=== PATIENT | male | born 1975 ===

== ENCOUNTER 2017-03-22 09:53 | Emergency (ER) | payer BC ==
[2017-03-22 10:51] VITALS: BP 108/78
[2017-03-22] MEDS ORDERED: Ketorolac INJ* 60 MG/2 ML VIAL IM ONE (11:48)
--- NOTE | 2017-03-22 12:15 | RAD ---
Indication: Back pain. 3 views of lumbar spine demonstrates no fracture. Disc spaces all well-preserved. Spinal canal appears to be intact. IMPRESSION: No fracture of the lumbar spine is noted.
--- NOTE | 2017-03-22 12:40 | UC ---
Back Pain HPI - HPI Summary HPI Summary: FALL DOWN STAIRS YESTERDAY, LEFT LOW BACK AND BUTTOCK PAIN. NO LOSS OF CONTROL OF BLADDER OR BOWELS. - History of Current Complaint Chief Complaint: UCBackPain Stated Complaint: LOWER BACK PAIN Time Seen by Provider: 03/22/17 11:36 Hx Obtained From: Patient Onset/Duration: Sudden Onset, Lasting Hours Timing: Intermittent, Lasting Hours Severity Initially: Moderate Severity Currently: Moderate Back Pain: Radiates To - LEFT LEG Character: Dull, Aching, Spasmodic Aggravating: Movement, Lifting Associated Signs And Symptoms: Negative: Flank Pain, Bladder Incontinence, Bowel Incontinence, Pain with Weight Bearing Related History: Previous Back Injury - Risk Factors AAA Risk Factors: Negative TAD Risk Factors: Negative Cauda Equina Risk Factors: Negative Epidural Abscess Risk Factors: Negative - Allergies/Home Medications Allergies/Adverse Reactions: Allergies Allergy/AdvReac Type Severity Reaction Status Date / Time No Known Allergies Allergy Verified 03/22/17 10:43 PMH/Surg Hx/FS Hx/Imm Hx Previously Healthy: Yes - Surgical History Surgical History: None - Family History Known Family History: Positive: Other - no FMH of low back strain - Social History Occupation: Employed Full-time Lives: With Family Alcohol Use: None Substance Use Type: None Smoking Status (MU): Light Every Day Tobacco Smoker Type: Cigarettes Amount Used/How Often: 1ppd Household Exposure Type: Cigarettes Cessation Counseling: Patient Advised to Stop Review of Systems Constitutional: Negative Skin: Negative Eyes: Negative ENT: Negative Respiratory: Negative Cardiovascular: Negative Gastrointestinal: Negative Genitourinary: Negative Motor: Negative Neurovascular: Negative Musculoskeletal: Arthralgia, Myalgia Neurological: Negative Psychological: Negative Is Patient Immunocompromised?: No All Other Systems Reviewed And Are Negative: Yes Physical Exam Triage Information Reviewed: Yes Appearance: Well-Appearing, Well-Nourished, Pain Distress Vital Signs: Initial Vital Signs Temp 98.6 F 03/22/17 10:43 Pulse 96 03/22/17 10:43 Resp 20 03/22/17 10:43 BP 108/78 03/22/17 10:43 Pulse Ox 100 03/22/17 10:43 Vital Signs Reviewed: Yes Eye Exam: Normal ENT Exam: Normal ENT: Positive: Normal ENT inspection, TMs normal Dental Exam: Normal Neck exam: Normal Neck: Positive: Supple, Nontender, No Lymphadenopathy Respiratory Exam: Normal Respiratory: Positive: Chest non-tender, Lungs clear, Normal breath sounds, No respiratory distress, No accessory muscle use Cardiovascular Exam: Normal Cardiovascular: Positive: RRR, No Murmur, Pulses Normal Abdominal Exam: Normal Abdomen Description: Positive: Nontender, No Organomegaly. Negative: CVA Tenderness (R), CVA Tenderness (L) Musculoskeletal: Positive: Strength Intact, ROM Intact, No Edema, Other: - POSITIVE STRAIGHT LEG RAISE LEFT LEG 20DEGREES. Neurological Exam: Normal Psychological Exam: Normal Skin Exam: Normal Back Pain Course/Dx - Differential Dx/Diagnosis Differential Diagnosis/HQI/PQRI: Arthritis, Strain, Sprain Provider Diagnoses: ACUTE ON CHRONIC LOW BACK SPRAIN; SCIATICA Discharge - Discharge Plan Condition: Stable Disposition: HOME Prescriptions: Cyclobenzaprine TAB* [Flexeril 10 MG TAB*] 10 mg PO TID PRN #15 tab PRN Reason: Spasms HYDROcodone/ACETAMIN 5-325 MG* [[place] 5-325 TAB*] 1 tab PO Q8H PRN #12 tab MDD three tabs PRN Reason: Pain Patient Education Materials: Acute Low Back Pain (ED), Chronic Back Pain (ED) Forms: *Work Release Referrals: [facility] [place] PHYSICIAN REFERRAL [Outside] Non Staff,Doctor [Primary Care Provider] - Additional Instructions: PHYSICAL THERAPY REFERRAL: You have been prescribed physical therapy. Treatments may include stretching, exercise, application of heat or cold, and other modalities. After an injury, PT can reduce swelling and pain. In recovery, PT is used to restore mobility and strength. Your specific treatment goals are: __x___ Reduction of Swelling (EGS, US, ice as needed) ___x__ Pain Reduction (EGS, US, ice as needed) ___x__ TENS Pack Fitting and Instruction Wound Hydrotherapy ___x__ Preservation of Mobility ___xx__ Rastafari of Mobility ___x__ Strength Rastafari __x___ Work or Sports Hardening This instruction sheet also serves as your PHYSICAL THERAPY REFERRAL! Please take it with you to the therapist, so he/she will be aware of your diagnosis and treatment plan. You may see the physical therapist of your choice for these treatments, but may wish to check with your insurance to be sure the provider you select is covered. It's important to see the doctor to whom you have been referred for follow up.
== END 2017-03-22 12:37 | disposition home or self-care (01) ==
LOC: UCCORT 09:53
DX: S33.5XXA Sprain of ligaments of lumbar spine, initial encounter (principal); M54.42 Lumbago with sciatica, left side; W10.9XXA Fall (on) (from) unspecified stairs and steps, initial encounter; Y92.9 Unspecified place or not applicable
CPT/HCPCS: 72100; 96372; 99211; G0463; J1885

== ENCOUNTER 2017-04-07 11:12 | Emergency (ER) | payer BC, OTHER ==
[2017-04-07 11:25] VITALS: BP 123/81
--- NOTE | 2017-04-07 12:13 | ED ---
Back Pain - HPI Summary HPI Summary: 41M presents with continuation of back that started 03/30. He states at the initially injury he was walking down the stairs at work and fell down stairs and landed on left side. He denies any new injury. Has history of back pain in the same injury. He admits to tingling down his left leg. He states he saw his chiropractor who normally sees for this pain and it did not help. Went to see his primary who will not take him because it is workers comp. He deneis any loss of bowel or bladder or saddle anaesthesia. He denies any fevers. He states the muscle relaxer helped. He did not follow up with PT. - History of Current Complaint Chief Complaint: UCBackPain Stated Complaint: BACK,LEFT LEG COMPLAINT (WC) Time Seen by Provider: 04/07/17 11:45 - Allergies/Home Medications Allergies/Adverse Reactions: Allergies Allergy/AdvReac Type Severity Reaction Status Date / Time No Known Allergies Allergy Verified 04/07/17 11:18 Home Medications: Home Medications Naproxen TAB* [Naprosyn 250 mg TAB*] 250 mg PO Q8H PRN 04/07/17 [History Confirmed 04/07/17] PMH/Surg Hx/FS Hx/Imm Hx Endocrine/Hematology History: Denies: Hx Anticoagulant Therapy Respiratory History: Denies: Hx Asthma Infectious Disease History: No Infectious Disease History: Denies: Traveled Outside the [place] in Last 30 Days - Family History Known Family History: Positive: Other - no FMH of low back strain - Social History Alcohol Use: None Substance Use Type: Reports: None Smoking Status (MU): Heavy Every Day Tobacco Smoker Type: Cigarettes Amount Used/How Often: 1ppd Review of Systems Negative: Fever Negative: Chest Pain Negative: Shortness Of Breath Positive: Other - back, tingling down left knee All Other Systems Reviewed And Are Negative: Yes Physical Exam Triage Information Reviewed: Yes Vital Signs On Initial Exam: Initial Vitals Temp Pulse Resp BP Pulse Ox 98.7 F 98 16 123/81 100 04/07/17 11:18 04/07/17 11:18 04/07/17 11:18 04/07/17 11:18 04/07/17 11:18 Vital Signs Reviewed: Yes Appearance: Positive: Pain Distress Skin: Positive: Warm, Dry Head/Face: Positive: Normal Head/Face Inspection Eyes: Positive: Normal, Conjunctiva Clear Respiratory/Lung Sounds: Positive: Clear to Auscultation, Breath Sounds Present Cardiovascular: Positive: Normal, RRR Musculoskeletal: Positive: Strength/ROM Intact - back with pain, Other - tenderness left side back, good pulses, pos SLR left Neurological: Positive: Normal Psychiatric: Positive: Normal Diagnostics - Vital Signs Vital Signs Temp Pulse Resp BP Pulse Ox 04/07/17 11:18 98.7 F 98 16 123/81 100 - Laboratory Lab Statement: Any lab studies that have been ordered have been reviewed, and results considered in the medical decision making process. Back Pain Course/Dx - Course Course Of Treatment: 41M presents with continuation of back that started 03/30. He states at the initially injury he was walking down the stairs at work and fell down stairs and landed on left side. He denies any new injury. Has history of back pain in the same injury. He admits to tingling down his left leg. He states he saw his chiropractor who normally sees for this pain and it did not help. Went to see his primary who will not take him because it is workers comp. He deneis any loss of bowel or bladder or saddle anaesthesia. He denies any fevers. He states the muscle relaxer helped. He did not follow up with PT. had normal xray last time. on exam tenderness left side of back. pos SLR. gave referral for PT. will have continue steriod, flexeril, and will try gabapentin for pain. gave referral for neurosurgery as someone needs to follow up with him and his primary cant. patient understands and agrees with plan. - Diagnoses Differential Diagnosis/HQI/PQRI: Positive: Strain, Sprain, Other - sciatica Provider Diagnoses: Back pain, Sciatica Discharge - Discharge Plan Condition: Good Disposition: HOME Prescriptions: Cyclobenzaprine TAB* [Flexeril 10 MG TAB*] 10 mg PO TID PRN #30 tab PRN Reason: Pain Gabapentin CAP(*) [Neurontin 300 CAP(*)] 300 mg PO TID #30 cap Methylprednisolone [Medrol Dosepak 4 MG*] 4 mg PO .SEE JOSE INSTRUCTION #1 packet Patient Education Materials: Back Pain (ED) Forms: *Work Release Referrals: [facility] [place] [facility]IAN REFERRAL [Outside] [facility] Physical therapy,PT [Medical Doctor] - Noel Spear MD [Medical Doctor] - Non Staff,Doctor [Medical Doctor] - Additional Instructions: Follow directions on package for Medrol pack Take muscle relaxers three times a day Can apply OTC lidocaine patches to area for up to 12 hours in one 24 hour period Take gabapentin three times a day Use ibuprofen or Tylenol for pain every 6 hours ice/heat area, move as much as possible Follow up with neurosurgey Follow up with PT Return to ED if develop any new or worsening symptoms
== END 2017-04-07 12:39 | disposition home or self-care (01) ==
LOC: UCCORT 11:12
DX: M54.30 Sciatica, unspecified side (principal); F17.210 Nicotine dependence, cigarettes, uncomplicated
CPT/HCPCS: 99212; G0463

== ENCOUNTER 2017-05-30 08:06 | Observation (INO) | payer OTHER ==
[~2017-05-30 08:06] MED LIST: Bacitracin IV* 50,000 UNITS INJ ONE; Buffered Lidocaine 0.9% SYRIN* 5 ML/SYR SYRINGE INTRADERM ONE; Lidocaine 1% MPF wEPI 200,000* 30 ML SDV ONE; Thrombin 5,000 UNITS* 1 APPLIC KIT - topical use - TOPICAL ONE
[2017-05-30] MEDS ORDERED: Buffered Lidocaine 0.9% SYRIN* 5 ML/SYR SYRINGE ONE (08:08)
[2017-05-30] MEDS ORDERED: fentaNYL* 50 MCG/ML 2 ML VIAL (100 MCG VIAL) ONE ×3 (09:23→11:59)
[2017-05-30] MEDS ORDERED: Midazolam* 1 MG/ML 2 ML VIAL (2 MG) ONE ×2 (09:23→09:58)
[2017-05-30] MEDS ORDERED: diPHENhydraMINE IV* 50 MG/ML 1 ml VIAL (BENADRYL) ONE (10:14)
[2017-05-30] MEDS ORDERED: Lidocaine 2% PF * 5 ML VIAL ONE (10:14)
[2017-05-30] MEDS ORDERED: Cisatracurium* 2 MG/ML MDV 5 ML ONE (10:20)
[2017-05-30] MEDS ORDERED: Ondansetron INJ* 2 MG/ML VIAL IV PRN ×2 (10:26→11:20)
[2017-05-30] MEDS ORDERED: diPHENhydraMINE IV* 50 MG/ML 1 ml VIAL (BENADRYL) IV PRN (10:26)
[2017-05-30] MEDS ORDERED: DiMENhydriNATE IV* 50 MG/ML VIAL IV PUSH PRN (10:26)
[2017-05-30] MEDS ORDERED: Acetaminophen TAB* 325 MG PO PRN ×2 (10:26→11:20)
[2017-05-30] MEDS ORDERED: Levalbuterol 0.63MG/3ML NEB* UNIT OF USE INH PRN (10:26)
[2017-05-30] MEDS ORDERED: PROCHLORPERAZINE INJ 5 MG/ML 2 ML VIAL IV PRN (10:26)
[2017-05-30] MEDS ORDERED: Dexamethasone IV* 4 MG/ML 1 ML (4 MG) ONE (10:27)
[2017-05-30] MEDS ORDERED: Mivacurium Chloride* 20 MG/10 ML VIAL IV ONE (10:27)
[2017-05-30] MEDS ORDERED: Propofol* 10 MG/ML 20 ML BTL IV PUSH ONE (10:27)
[2017-05-30] MEDS ORDERED: Ondansetron INJ* 2 MG/ML VIAL ONE (10:27)
[2017-05-30] MEDS ORDERED: Famotidine IV* 10 MG/ML 2 ML (20 mg) ONE (10:27)
[2017-05-30] MEDS ORDERED: Labetalol IV* 5 MG/ML 20 ML VIAL ONE (10:38)
[2017-05-30] MEDS ORDERED: Nicotine Inhaler* 10 MG AMP INH PRN (11:24)
[2017-05-30] MEDS ORDERED: Mouth Piece, Nicotine* 1 EACH CARTRIDGE INH PRN (11:24)
[2017-05-30] MEDS: fentaNYL* 50 MCG/ML 2 ML VIAL (100 MCG VIAL) IV PRN ×2 (12:03→12:19)
[2017-05-30] MEDS ORDERED: HYDROcodone/ACETAMIN 5-325 MG* 1 TAB ONE (12:21)
[2017-05-30] MEDS: HYDROcodone/ACETAMIN 5-325 MG* 1 TAB PO PRN ×3 (12:23→21:54)
[2017-05-30] MEDS: Nicotine PATCH 21 MG/24 HR* PATCH TRANSDERM SCH (14:22)
[2017-05-30] MEDS ORDERED: Nicotine Patch Removal NOTE PATCH OFF SCH (21:00)
[2017-05-31] MEDS: HYDROcodone/ACETAMIN 5-325 MG* 1 TAB PO PRN ×2 (01:56→05:51)
--- NOTE | 2017-05-31 07:47 | PN ---
Progress Note - Progress Note Date of Service: 05/31/17 SOAP: Subjective: [S/p lumbar discectomy L5-S1 on the left, POD #1. RLE pain improved. Incisional pain well controlled with oral pain medications. Ambulating well. Eating, drinking and voiding without difficulty. Denies headache, chest pain and nausea. ] Objective: [Vital Signs: Temp Pulse Resp BP Pulse Ox 98.0 F 69 14 109/62 94 05/31/17 03:42 05/31/17 03:42 05/31/17 05:51 05/31/17 03:42 05/31/17 04:43 General: Alert and oriented. No distress. Sitting up on bedside. Neuro: Motor and sensory intact. Incision: Dressing intact and clean. No swelling. Extremities: Full ROM. ] Assessment: [Satisfactory post-op course. ] Plan: [1. Discharge home today. 2. Discharge instructions discussed with the patient. ]
[2017-05-31] MEDS: Nicotine PATCH 21 MG/24 HR* PATCH TRANSDERM SCH (07:59)
[2017-05-31 08:25] VITALS: BP 130/73
[2017-05-31] MEDS ORDERED: Influenza VAC *QUAD* 2017-18* 0.5 ML SYRINGE IM ONE (09:00)
--- NOTE | 2017-05-31 22:01 | DS ---
DISCHARGE SUMMARY: DATE OF ADMISSION: 05/30/17 DATE OF DISCHARGE: 05/31/17 PROVIDER: Dr. Spear. * (DICTATED BY ANGELA TERRAZAS) DISCHARGE DIAGNOSIS: Herniated nucleus pulposus, L5-S1, on the left. SPECIAL PROCEDURE: Lumbar diskectomy at L5-S1 on the left. HOSPITAL COURSE: This 41-year-old male was seen in office approximately 1 month ago with severe left-sided lumbar radiculopathy for the previous 4 weeks. He has complained of chronic low back pain for several years, which had recently worsened to include the left lower extremity. MRI of lumbar spine revealed herniated disk at L5-S1 on the left, which was consistent with the patient's physical exam findings and symptoms. He participated in physical therapy and was treated with medications without significant improvement and therefore surgical intervention was discussed with the patient. He decided to proceed with this option and on the day of admission, he was taken to surgery where under general anesthesia, a lumbar diskectomy at L5-S1 on the left operation was carried out. Postoperatively, he is doing well and the left lower extremity preoperative pain had improved. He is ambulating independently. He is eating, drinking, and voiding without difficulty. Pain is well controlled with oral pain medications on the first postoperative day. He is discharged home to the care of his family. DISCHARGE INSTRUCTIONS: Activity level and wound care were discussed with the patient and provided. FOLLOWUP: He will be seen in the office next Monday for followup and staple removal. DISCHARGE MEDICATIONS: 1. [place] 5/325 mg 1 to 2 tabs by mouth every 4 to 6 hours as needed for pain. ANGELA TERRAZAS [id number]/[facility] #: [id number] [facility]CTORS' HOSPITALJohan
--- NOTE | 2017-06-05 10:31 | OP ---
OPERATIVE REPORT: DATE OF OPERATION: 05/30/17. DATE OF : 79. PRIMARY SURGEON: Noel Covarrubias MD. IDENTIFIER HORSE: ANGELA Navarrete. ANESTHESIA: General. PRE-OP DIAGNOSIS: Herniated nucleus pulposus of L5-S1 on the left. POST-OP DIAGNOSIS: Herniated nucleus pulposus of L5-S1 on the left. OPERATIVE PROCEDURE: Lumbar diskectomy, L5-S1 on the left with microdissection. DESCRIPTION OF PROCEDURE: After satisfactory general anesthesia was obtained, the patient was placed on the operating room in a prone position with the chest supported on the Franko frame on the back s lightly flexed. The lumbar region was then clipped, prepped and draped in a sterile manner for lumba r laminectomy and a skin incision outlined from L5 to the sacrum. This incision was infiltrated with 1% Xylocaine with epinephrine, after which it was turned down sharply to the level of the lumbar fas dimitrios. The fascia was divided along the spinous processes from L5 to the sacrum and the paraspinal mus culature stripped away from these posterior elements using the periosteal elevator and monopolar caut matthew. The L5-S1 interspace was identified by palpating the sacrum and moving up to the first removabl e interspace. A partial laminectomy was then carried out to this level by removing the inferior aspe ct of the L5 lamina and medial aspect of the facet complex with a combination of Midas Geoffrey drill and Kerrison rongeurs. This was carried superiorly until the attachment of the ligamentum flavum was ally en down. Ligamentum flavum was then removed with the Kerrison as well. At this point of the procedu re, the operating microscope was brought into the field and remainder of the procedure was done under microscopic visualization. Projecting beneath the S1 nerve root was noted to be a heaped up chronic ally herniated disk with pieces cartilages end-plate and free disk fragments intermixed as well. The disk space was decompressed with a combination of curettes and pituitary rongeurs. At the conclusio n of the decompression, it was felt that the`S1 nerve root was free in its course. After assuring ad equate hemostasis, the wound was thoroughly irrigated, after which a piece of Gelfoam was placed over the the laminectomy defect. The fascia was then reapproximated with 0 Vicryl suture, the subcutaneo us tissue was closed with 3-0 Vicryl suture and the skin closed with skin clips. The estimated blood loss was less than 50 cc and the final sponge, padding, and needle counts were correct. The patient was taken to the recovery room, extubated and in stable condition. [id number]/[facility] #: [id number]
== END 2017-05-31 09:55 | disposition home or self-care (01) ==
LOC: OR 08:06 → SSU 13:32
PROVIDERS: ADMIT Neurological Surgery; ATTEND Neurological Surgery
PROC: 01NB0ZZ Release Lumbar Nerve, Open Approach (ICD-10-PCS; 2017-05-30)
PROC: 0SB20ZZ Excision of Lumbar Vertebral Disc, Open Approach (ICD-10-PCS; principal; 2017-05-30 09:45)
DX: M51.17 Intervertebral disc disorders with radiculopathy, lumbosacral region (principal); Z23 Encounter for immunization
CPT/HCPCS: 88304; 90471; 90686; 96374; A9270-GY; G0008; G0378; J1100; J1200; J2001; J2250; J2405; J2704; J3010